=== PATIENT | female | born 1975 ===

== ENCOUNTER 2016-11-18 13:45 | Outpatient (CLI) | payer OTHER ==
--- NOTE | 2016-11-21 15:25 | Ultrasound Report ---
BILATERAL MAMMOGRAM AND LEFT BREAST ULTRASOUND: The patient has a heterogeneously dense breast pattern bilaterally which is generally symmetric in distribution. The lobular density noted on previous studies in 2016 in the right breast has remained unchanged. The breast findings bilaterally are otherwise also unchanged and generally unremarkable. Ultrasound of the left breast in the 12:00 location again demonstrate the circumscribed, elongated, and homogeneously hypoechoic nodule is again identified. It currently measures 22 mm in maximum length. On prior examination in July 2015 it measured the same. No change in its characteristics. CAD used. Impression: Stable mammogram and targeted left breast ultrasound. RECOMMENDATION: Annual mammogram followup and targeted left breast ultrasound. BI-RADS CATEGORY: 2 = Benign ACR BI-RADS MAMMOGRAPHIC CODES: 0 = Needs additional imaging evaluation; 1 = Negative; 2 = Benign; 3 = Probably benign; 4 = Suspicious; 5 = Malignant; 6 = Known biopsy-proven malignancy COMMENT: 1. Dense breast tissue, i.e., adenosis, fibrocystic changes, etc., may obscure an underlying neoplasm. 2. Approximately 10% of cancers are not detected with mammography. 3. A negative mammography report should not delay biopsy if a clinically suspicious mass is present. COMMENT: Patient follow-up letters are generated by [email or web address].
== END 2016-11-18 13:46 | disposition home or self-care (01) ==
LOC: SPVWC 13:45
PROVIDERS: ATTEND Obstetrics & Gynecology
DX: Z12.31 Encounter for screening mammogram for malignant neoplasm of breast (principal); N63 Unspecified lump in breast
CPT/HCPCS: 76642; G0204; 77066